=== PATIENT | female | born 1990 | race Caucasian/White ===

== ENCOUNTER 2018-06-20 11:08 | Observation (INO) | payer MEDICAID ==
[2018-06-20] MEDS ORDERED: NORMAL SALINE 1000 ML 1,000 ML IV PRN (11:53)
[2018-06-20] MEDS ORDERED: MORPHINE SULFATE 10 MG/ML INJ ONE (13:15)
[2018-06-20] MEDS: CLINDAMYCIN 600 MG/D5W RTU 600 MG/50 ML RTUPB IV SCH ×2 (13:23→21:49)
[2018-06-20 13:50] LABS: HEMOGLOBIN 13.7 g/dL (12.0-15.5); MEAN CORPUSCULAR HEMOGLOBIN 29.6 pg (27.0-33.4); MEAN CORPUSCULAR HGB CONC 34.2 g/dL (32.0-36.0); MEAN CORPUSCULAR VOLUME 86 fl (80-97); PLATELET COUNT 421 10^3/uL (150-450); RED BLOOD COUNT 4.63 10^6/uL (3.72-5.28); RED CELL DISTRIBUTION WIDTH 12.9 % (11.5-14.0); WHITE BLOOD COUNT 10.3 10^3/uL (4.0-10.5)
[2018-06-20 14:21] LABS: ANION GAP 12 (5-19); BLOOD UREA NITROGEN 11 mg/dL (7-20); CALCIUM 9.2 mg/dL (8.4-10.2); CARBON DIOXIDE 24 mmol/L (22-30); CHLORIDE 105 mmol/L (98-107); GLUCOSE 93 mg/dL (75-110); POTASSIUM 4.1 mmol/L (3.6-5.0)
[2018-06-20] MEDS ORDERED: CLINDAMYCIN PHOSPHATE 450 MG in DEXTROSE 5%-WATER 50 ML IV SCH (15:00)
[2018-06-20] MEDS ORDERED: GLUCAGON,HUMAN RECOMB 1 MG INJ IM PRN (15:01)
[2018-06-20] MEDS ORDERED: DEXTROSE 50%-WATER 25 GM/50 ML DISP.SYRIN IV PRN ×2 (15:01)
[2018-06-20] MEDS ORDERED: DEXTROSE 40% GEL 15 GM TUBE PO PRN ×2 (15:01)
--- NOTE | 2018-06-20 15:01 | PDOC H&P ---
History of Present Illness Admission Date/PCP: 06/20/18 11:08 LEANDER REYES NP Patient complains of: Swelling and pain under her left chin. History of Present Illness: STEVE FARIAS is a 27 year old female in usual state of good health until late last week when she noticed perhaps an insect bite underneath her left chin that she scratched. She subsequently developed swelling and redness underneath her left chin along with pain. No drainage and no fever. She has a history of MRSA of her groin in the remote past. She has a history of diabetes for which she takes insulin. Past Medical History Endocrine Medical History: Reports: Diabetes Mellitus Type 2 Infectious Medical History: Reports: Methicillin-Resistant Staph Aureus Social History Smoking Status: Never Smoker Frequency of Alcohol Use: None Hx Recreational Drug Use: No Hx Prescription Drug Abuse: No Family History Parental Family History Reviewed: No Children Family History Reviewed: No Sibling(s) Family History Reviewed.: No Medication/Allergy Allergies/Adverse Reactions: codeine Allergy (Unknown, Verified 06/20/18 14:45) Physical Exam Vital Signs: Temp Pulse Resp BP Pulse Ox 98.9 F 100 24 H 146/93 H 95 06/20/18 11:49 06/20/18 11:49 06/20/18 11:49 06/20/18 11:49 06/20/18 11:49 Intake & Output 06/19/18 06/20/18 06/21/18 06:59 06:59 06:59 Weight 95.71 kg General appearance: PRESENT: no acute distress, cooperative Eye exam: PRESENT: conjunctiva pink Neck exam: PRESENT: other - Under her left chin, approximately 4 x 4 centimeter region of swelling with tenderness and erythema and a sense of central fluctuance. A scab at the left chin superior to this region of erythema. No drainage. Marked tenderness to palpation in the region of swelling. Respiratory exam: PRESENT: clear to auscultation leonor Cardiovascular exam: PRESENT: RRR GI/Abdominal exam: PRESENT: other - Soft, nondistended, nontender to palpation. Neurological exam: PRESENT: alert, awake Psychiatric exam: PRESENT: appropriate affect Skin exam: PRESENT: warm Results Laboratory Results: 06/20/18 13:25 06/20/18 13:25 06/20/18 06/20/18 06/20/18 13:25 13:25 13:25 WBC 10.3 RBC 4.63 Hgb 13.7 Hct 40.0 MCV 86 MCH 29.6 MCHC 34.2 RDW 12.9 Plt Count 421 Sodium 141.0 Potassium 4.1 Chloride 105 Carbon Dioxide 24 Anion Gap 12 BUN 11 Creatinine 0.50 L Est GFR ( Amer) > 60 Est GFR (Non-Af Amer) > 60 Glucose 93 Calcium 9.2 Serum HCG, Qual NEGATIVE Assessment & Plan - Diagnosis (1) Abscess Is this a current diagnosis for this admission?: Yes Plan: Most likely an abscess under her left chin. Will plan incision and drainage in the OR. I discussed with the patient the risk and benefits of the procedure including risk of scarring, recurrence, mistaken diagnosis, injury to underlying structures. Patient understands and agrees to proceed.
[2018-06-20] MEDS ORDERED: FENTANYL CITRATE INJ/PF 100 MCG/2 ML AMPUL ONE ×2 (15:58)
[2018-06-20] MEDS ORDERED: MIDAZOLAM 2 MG/2 ML INJ ONE (15:58)
[2018-06-20] MEDS ORDERED: PROPOFOL INJ 200 MG/20 ML VIAL IV ONE (15:58)
[2018-06-20] MEDS ORDERED: LIDOCAINE 1% INJ-PF (10 MG/ML) 30 ML SDV ONE (16:20)
[2018-06-20] MEDS ORDERED: BUPIVACAINE HCL 0.25 % INJ/PF (2.5 MG/1 ML) 30 ML VIAL ONE (16:20)
[2018-06-20] MEDS ORDERED: FENTANYL CITRATE INJ/PF 100 MCG/2 ML AMPUL IV PRN ×3 (16:34)
[2018-06-20] MEDS ORDERED: DIPHENHYDRAMINE HCL 50 MG/ML VIAL IV PRN (16:34)
[2018-06-20] MEDS ORDERED: MORPHINE SULFATE 10 MG/ML INJ IV PRN (16:34)
[2018-06-20] MEDS ORDERED: MEPERIDINE HCL/PF INJ 25 MG/1 ML DISP.SYRIN IV PRN (16:34)
[2018-06-20] MEDS ORDERED: PROMETHAZINE HCL INJ 25 MG/1 ML VIAL IV PRN ×2 (16:34)
--- NOTE | 2018-06-20 16:53 | Operative Report ---
Operative Report DATE OF SURGERY: 06/20/18 PREOPERATIVE DIAGNOSIS: submental subcutaneous abscess POSTOPERATIVE DIAGNOSIS: 3 cm submental subcutaneous abscess OPERATION: Incision and drainage of abscess measuring 3 cm in size SURGEON: NADIA SOARES ANESTHESIA: LMAC TISSUE REMOVED OR ALTERED: Pus sent for Gram stain and culture COMPLICATIONS: None ESTIMATED BLOOD LOSS: Minimal INTRAOPERATIVE FINDINGS: Approximately 2 x 3 cm abscess cavity in the left submental region. PROCEDURE: Informed consent was obtained. Patient was brought to the operating room placed in the operating table in supine position. The procedure was done under LMAC. Patient is chin and neck were prepped and draped in usual sterile manner. Local anesthetic was administered. The mass measured about 4 x 3 cm in size and was located in the left submental region. Transverse incision was made overlying the region of fluctuance entering an abscess cavity measuring 3 x 2 cm in size. Fluid was sent for Gram stain and culture. The cavity was irrigated out. Hemostasis was achieved with electrocautery. The wound was then packed. Patient tolerated procedure well with no apparent complications.
[2018-06-20] MEDS: MORPHINE SULFATE 10 MG/ML INJ IV PRN ×2 (18:28→21:50)
[2018-06-21] MEDS: MORPHINE SULFATE 10 MG/ML INJ IV PRN (04:06)
[2018-06-21] MEDS: CLINDAMYCIN 600 MG/D5W RTU 600 MG/50 ML RTUPB IV SCH (05:15)
[2018-06-21] MEDS: INSULIN REG, HUMAN 100 UNIT/ML 3 ML VIAL (PYX) SUBCUT PRN ×3 (08:26→22:19)
[2018-06-21] MEDS: TRAMADOL HCL 50 MG TABLET PO PRN ×4 (08:27→22:13)
[2018-06-21] MEDS: IBUPROFEN 800 MG TABLET PO SCH ×3 (08:28→22:12)
--- NOTE | 2018-06-21 08:54 | PDOC PROGRESS REPORT ---
Subjective Progress Note for:: 06/21/18 Reason For Visit: ABSCESS ON CHIN Physical Exam Vital Signs: Temp Pulse Resp BP Pulse Ox 98.1 F 94 16 116/73 97 06/21/18 08:08 06/21/18 08:08 06/21/18 08:08 06/21/18 08:08 06/21/18 08:08 Intake & Output 06/20/18 06/21/18 06/22/18 06:59 06:59 06:59 Intake Total 4410 1000 Output Total 25 Balance 4385 1000 Weight 97.4 kg Results Laboratory Results: 06/20/18 13:25 06/20/18 13:25 06/20/18 06/20/18 06/20/18 13:25 13:25 13:25 WBC 10.3 RBC 4.63 Hgb 13.7 Hct 40.0 MCV 86 MCH 29.6 MCHC 34.2 RDW 12.9 Plt Count 421 Sodium 141.0 Potassium 4.1 Chloride 105 Carbon Dioxide 24 Anion Gap 12 BUN 11 Creatinine 0.50 L Est GFR ( Amer) > 60 Est GFR (Non-Af Amer) > 60 Glucose 93 Calcium 9.2 Serum HCG, Qual NEGATIVE Assessment & Plan - Diagnosis (1) Abscess Is this a current diagnosis for this admission?: Yes - Plan Summary Plan Summary: This is a 27-year-old female status post incision and drainage of a facial abscess. The abscess cavity appears clean, however there is still significant induration. There is no purulent drainage at this time. Packing was removed and replaced at bedside today. Continue with antibiotics. Continue to monitor closely for clinical response. Dressing changes twice daily. Transition to oral pain medications. Anticipate discharge home tomorrow.
[2018-06-21] MEDS: DIPHENHYDRAMINE HCL 25 MG CAPSULE PO PRN ×2 (09:45→22:12)
[2018-06-21] MEDS: CLINDAMYCIN HCL 150 MG CAPSULE PO SCH ×2 (12:19→18:22)
[2018-06-22] MEDS: CLINDAMYCIN HCL 150 MG CAPSULE PO SCH ×3 (00:10→12:23)
[2018-06-22] MEDS: TRAMADOL HCL 50 MG TABLET PO PRN (06:27)
[2018-06-22] MEDS: IBUPROFEN 800 MG TABLET PO SCH (06:28)
--- NOTE | 2018-06-22 09:03 | PDOC PROGRESS REPORT ---
Subjective Progress Note for:: 06/22/18 Subjective:: Feels much better. Reason For Visit: ABSCESS ON CHIN Physical Exam Vital Signs: Temp Pulse Resp BP Pulse Ox 98.0 F 67 12 105/59 L 99 06/22/18 07:42 06/22/18 07:42 06/22/18 07:42 06/22/18 07:42 06/22/18 07:42 Intake & Output 06/21/18 06/22/18 06/23/18 06:59 06:59 06:59 Intake Total 4410 2891 Output Total 25 Balance 4385 2891 Weight 97.4 kg General appearance: PRESENT: no acute distress, cooperative Respiratory exam: PRESENT: clear to auscultation leonor Cardiovascular exam: PRESENT: RRR GI/Abdominal exam: PRESENT: other - Soft, nondistended, nontender to palpation. Skin exam: PRESENT: other - Submental wound is clean with no purulent drainage. The surrounding region of erythema and induration has markedly improved. Results Laboratory Results: 06/20/18 13:25 06/20/18 13:25 06/20/18 16:44 Face - Abscess Gram Stain - Final Assessment & Plan - Diagnosis (1) Abscess Is this a current diagnosis for this admission?: Yes Plan: Status post incision and drainage. Responding well with surgical therapy and antibiotic therapy. Cultures still pending at this time however with the patient responding well with the current therapy will discharge patient home on clindamycin. Follow-up next week at [facility].
--- NOTE | 2018-06-22 09:41 | DISCHARGE SUMMARY E ---
Discharge Summary NAME: STEVE FARIAS : 1990 AGE: 27Y ADMITTED: 06/20/2018 DISCHARGED: 06/22/2018 DISCHARGE DIAGNOSIS: Submental abscess. SECONDARY DIAGNOSIS: Diabetes. PROCEDURE PERFORMED DURING HOSPITALIZATION: Incision and drainage of submental abscess performed by Dr. Ariella Soares on 06/20/2018. HOSPITAL COURSE: The patient underwent the above mentioned surgery. She was also treated with IV clindamycin. She responded well with therapy. The wound looked good and the induration and erythema had markedly improved by the time of discharge. Her culture results were still pending at the time of discharge, but the gram stain demonstrated gram-positive cocci in clusters. She does have a history of MRSA in the past. The patient is now being discharged to home with clindamycin 300 mg p.o. q.i.d. for 5 days. She will follow up at [facility] next week. She is to call for any problems such as worsening of her redness or development of diarrhea or abdominal pain. The patient may follow a diabetic diet. She is encouraged to stay active at home. DICTATING PHYSICIAN: ARIELLA SOARES M.D. [id number] PHY#: [id number] ID: [id number] JOB#: [id number] ACCT: [id number] cc:ARIELLA SOARES M.D. >
[2018-06-22] MEDS ORDERED: ONDANSETRON 4 MG TAB.RAPDIS ONE (10:15)
[2018-06-22] MEDS ORDERED: ONDANSETRON 4 MG TAB.RAPDIS PO ONE (10:30)
[2018-06-22 12:23] VITALS: BP 115/73
== END 2018-06-22 13:20 | disposition home or self-care (01) ==
LOC: 2N 11:08
PROVIDERS: ADMIT Surgery; ATTEND Surgery
PROC: 0W950ZX Drainage of Lower Jaw, Open Approach, Diagnostic (ICD-10-PCS; principal; 2018-06-20 15:30)
DX: L02.01 Cutaneous abscess of face (principal); E11.9 Type 2 diabetes mellitus without complications; Z86.14 Personal history of Methicillin resistant Staphylococcus aureus infection; Z79.4 Long term (current) use of insulin; F32.9 Major depressive disorder, single episode, unspecified
CPT/HCPCS: 36415; 87070; 82962 ×3; 84703; 85027; 87075; 87077; 80048; 87186; 41016; G0378 ×3; G0379; J2250; S0077 ×2; J3490 ×6; S0119; J3010; J2270 ×2; J1815; S0020; J7030; J2704; 300; 87205

== ENCOUNTER 2019-01-16 11:51 | Inpatient (IN) | payer MEDICAID ==
[2019-01-16] MEDS ORDERED: ONDANSETRON HCL INJ/PF 4 MG/2 ML SDV IV ONE ×2 (12:16→16:48)
[2019-01-16] MEDS: NORMAL SALINE 1000 ML 1,000 ML IV PRN ×2 (12:28→13:34)
[2019-01-16 12:44] LABS: ABSOLUTE BASOPHILS # (AUTO) 0.1 10^3/uL (0.0-0.2); ABSOLUTE LYMPHOCYTES (AUTO) 1.6 10^3/uL (0.5-4.7); ABSOLUTE MONOCYTES (AUTO) 0.5 10^3/uL (0.1-1.4); ABSOLUTE NEUT (AUTO) 9.8 10^3/uL (1.7-8.2); BASOPHILS % (AUTO) 0.7 % (0-2); HEMOGLOBIN 16.3 g/dL (12.0-15.5); LYMPHOCYTES % (AUTO) 13.5 % (13-45); MEAN CORPUSCULAR HEMOGLOBIN 29.9 pg (27.0-33.4); MEAN CORPUSCULAR HGB CONC 33.2 g/dL (32.0-36.0); MEAN CORPUSCULAR VOLUME 90 fl (80-97); MONOCYTES % (AUTO) 3.9 % (3-13); PLATELET COUNT 625 10^3/uL (150-450); RED BLOOD COUNT 5.44 10^6/uL (3.72-5.28); RED CELL DISTRIBUTION WIDTH 14.1 % (11.5-14.0); SEGMENTED NEUTROPHILS % (AUTO) 81.9 % (42-78); TOTAL CELLS COUNTED % (AUTO) 100 %; WHITE BLOOD COUNT 11.9 10^3/uL (4.0-10.5)
[2019-01-16 12:59] LABS: VENOUS BLOOD BASE EXCESS -14.8 mmol/L; VENOUS BLOOD HCO3 11.6 mmol/L (20-32); VENOUS BLOOD PH 7.21 (7.30-7.42)
[2019-01-16] MEDS ORDERED: FAMOTIDINE INJ/PF 20 MG/2 ML SDV IV ONE (13:14)
[2019-01-16 14:07] LABS: APPEARANCE,URINE CLEAR; BILIRUBIN,URINE NEGATIVE (NEGATIVE); COLOR,URINE YELLOW; GLUCOSE, URINE >=500 mg/dL (NEGATIVE); KETONES,URINE 80 mg/dL (NEGATIVE); LEUKOCYTE ESTERASE,URINE NEGATIVE (NEGATIVE); NITRITE,URINE NEGATIVE (NEGATIVE); PROTEIN,URINE 30 mg/dL (NEGATIVE); URINE SPECIFIC GRAVITY 1.022; UROBILINOGEN,URINE NEGATIVE mg/dL (<2.0)
[2019-01-16 14:53] LABS: ALANINE AMINOTRANSFERASE 30 U/L (9-52); ALBUMIN 4.6 g/dL (3.5-5.0); ALKALINE PHOSPHATASE 118 U/L (38-126); ASPARTATE AMINO TRANSFERASE 13 U/L (14-36); BILIRUBIN,DIRECT 0.2 mg/dL (0.0-0.4); BILIRUBIN,TOTAL 0.7 mg/dL (0.2-1.3); BLOOD UREA NITROGEN 12 mg/dL (7-20); CALCIUM 9.1 mg/dL (8.4-10.2); CARBON DIOXIDE 14 mmol/L (22-30); CHLORIDE 108 mmol/L (98-107); GLUCOSE 275 mg/dL (75-110); LIPASE 27.4 U/L (23-300); POTASSIUM 4.3 mmol/L (3.6-5.0); TOTAL PROTEIN 7.4 g/dL (6.3-8.2)
[2019-01-16 14:55] LABS: ALCOHOL < 10 mg/dL (NONE DETECTED)
[2019-01-16 14:58] LABS: ANION GAP 19 (5-19); SODIUM 141.4 mmol/L (137-145)
[2019-01-16] MEDS ORDERED: POTASSI CL 20 MEQ/D5-1/2NS 1L 1,000 ML IV ONE (15:19)
[2019-01-16] MEDS ORDERED: INSULIN REG, HUMAN 100 UNIT/ML 3 ML VIAL (PYX) IV ONE (15:21)
--- NOTE | 2019-01-16 16:23 | ER Document Report ---
Entered by SHIMA KEBEDE SCRIBE 01/16/19 1230 Acting as scribe for:LIDIA ESCOBAR DO ED Medical Screen (RME) - General Chief Complaint: Nausea/Vomiting Stated Complaint: FATIGUE, BLOOD SUGAR ISSUE Time Seen by Provider: 01/16/19 12:07 Primary Care Provider: LEANDER REYES NP [Primary Care Provider] - Follow up as needed Mode of Arrival: Ambulatory Information source: Patient Notes: Patient is a 28-year-old female presenting to the emergency department complaining of nausea, vomiting onset 2 days ago. Patient states she was celebrating a friends birthday over the weekend and consumed [place] when she normally does not do. She states she was also around a child who was also sick over the weekend. She states she is unsure if the alcohol has caused dka due to her symptoms feeling similar previous dka. She states she has been unable to maintain much food or liquids further stating she has only been able to eat dry toast and a small amount of water. She also reports an elevated blood sugar of 580 this morning. She states prior to EMS arrival she took 16 units of Humalog. She states she was given fluids and Zofran which minimally relieved her symptoms. I have greeted and performed a rapid initial assessment of the patient. A comprehensive ED assessment and evaluation of the patient, analysis of test results, and completion of the medical decision making process will be conducted by additional ED providers. GENERAL: Alert, interacts well. No acute distress. HEAD: Normocephalic, atraumatic. EYES: Pupils equal, round, and reactive to light. Extraocular movements intact. ENT: Oral mucosa dry, tongue midline. NECK: Full range of motion. Supple. Trachea midline. LUNGS: Clear to auscultation bilaterally, no wheezes, rales, or rhonchi. No respiratory distress. HEART: Tachycardic. No murmurs, gallops, or rubs. ABDOMEN: Soft, non-tender. Non-distended. Bowel sounds present in all 4 quadrants. No guarding, rigidity, or rebound. EXTREMITIES: Moves all 4 extremities spontaneously. NEUROLOGICAL: Alert and oriented x3. Normal speech. PSYCH: Normal affect, normal mood. SKIN: Warm, dry, normal turgor. No rashes or lesions noted. TRAVEL OUTSIDE OF THE [place] IN LAST 30 DAYS: No - Related Data Allergies/Adverse Reactions: codeine Allergy (Unknown, Verified 01/16/19 11:53) Past Medical History - Social History Frequency of alcohol use: Occasional Drug Abuse: None Endocrine Medical History: Reports: Hx Diabetes Mellitus Type 1, Hx Diabetes Mellitus Type 2 Renal/ Medical History: Denies: Hx Peritoneal Dialysis Infectious Medical History: Reports: Hx MRSA Past Surgical History: Reports: Hx Tonsillectomy, Hx Tubal Ligation - Immunizations History of Influenza Vaccine for 08/2017 - 01/2018 Season: No Physical Exam - Vital signs Vitals: Temp Pulse Resp BP Pulse Ox 98.3 F 145 H 22 H 121/83 98 01/16/19 12:02 01/16/19 12:02 01/16/19 12:02 01/16/19 12:02 01/16/19 12:02 Course - Vital Signs Vital signs: Temp Pulse Resp BP Pulse Ox 98.3 F 145 H 27 H 133/97 H 98 01/16/19 12:02 01/16/19 12:02 01/16/19 12:46 01/16/19 12:45 01/16/19 12:46 - Laboratory Result Diagrams: 01/16/19 12:22 01/16/19 14:15 Laboratory results interpreted by me: 01/16/19 01/16/19 01/16/19 12:22 12:22 13:21 WBC 11.9 H RBC 5.44 H Hgb 16.3 H Hct 49.0 H RDW 14.1 H Plt Count 625 H Seg Neutrophils % 81.9 H Absolute Neutrophils 9.8 H VBG pH 7.21 L VBG pCO2 30.0 L VBG HCO3 11.6 L Chloride Carbon Dioxide Glucose POC Glucose 295 H AST Urine Protein Urine Glucose (UA) Urine Ketones Urine Blood 01/16/19 01/16/19 13:55 14:15 WBC RBC Hgb Hct RDW Plt Count Seg Neutrophils % Absolute Neutrophils VBG pH VBG pCO2 VBG HCO3 Chloride 108 H Carbon Dioxide 14 L Glucose 275 H POC Glucose AST 13 L Urine Protein 30 H Urine Glucose (UA) >=500 H Urine Ketones 80 H Urine Blood SMALL H Doctor's Discharge - Discharge Referrals: LEANDER REYES NP [Primary Care Provider] - Follow up as needed I personally performed the services described in the documentation, reviewed and edited the documentation which was dictated to the scribe in my presence, and it accurately records my words and actions.
[2019-01-16] MEDS ORDERED: ACETAMINOPHEN 325 MG TABLET PO PRN (17:01)
[2019-01-16] MEDS ORDERED: DEXTROSE 40% GEL 15 GM TUBE PO PRN ×2 (17:09)
[2019-01-16] MEDS ORDERED: DEXTROSE 50%-WATER 25 GM/50 ML DISP.SYRIN IV PRN ×2 (17:09)
[2019-01-16] MEDS ORDERED: GLUCAGON,HUMAN RECOMB 1 MG INJ IM PRN (17:09)
--- NOTE | 2019-01-16 17:21 | ER Document Report ---
ED General - General Chief Complaint: Nausea/Vomiting Stated Complaint: FATIGUE, BLOOD SUGAR ISSUE Time Seen by Provider: 01/16/19 12:07 Primary Care Provider: LEANDER REYES NP [Primary Care Provider] - Follow up as needed Mode of Arrival: Ambulatory TRAVEL OUTSIDE OF THE [place] IN LAST 30 DAYS: No - HPI Notes: Patient presents to the emergency department for evaluation of nausea, vomiting, elevated blood sugar. She is a type I diabetic, diagnosed approximately 12 years ago. She states she went out with friends to celebrate a birthday. She did admit to drinking more alcohol than she believes she should have. She states that since then she has had vomiting. Is been getting progressively worse. The vomit has been nonbloody, nonbilious. She is not urinating more than normal. She continues to take her insulin as prescribed. This all feels similar to when she was in DKA in the past. She states she did have some heartburn associated. - Related Data Allergies/Adverse Reactions: codeine Allergy (Unknown, Verified 01/16/19 11:53) Past Medical History - General Information source: Patient - Social History Smoking Status: Never Smoker Frequency of alcohol use: Occasional Drug Abuse: None Family History: Reviewed & Not Pertinent Patient has suicidal ideation: No Patient has homicidal ideation: No Endocrine Medical History: Reports: Hx Diabetes Mellitus Type 1 Renal/ Medical History: Denies: Hx Peritoneal Dialysis Infectious Medical History: Reports: Hx MRSA Past Surgical History: Reports: Hx Tonsillectomy, Hx Tubal Ligation Review of Systems - Review of Systems Constitutional: Malaise, Weakness EENT: No symptoms reported Cardiovascular: No symptoms reported Respiratory: No symptoms reported Gastrointestinal: See HPI Musculoskeletal: No symptoms reported Skin: No symptoms reported Neurological/Psychological: No symptoms reported Physical Exam - Vital signs Vitals: Temp Pulse Resp BP Pulse Ox 98.3 F 145 H 22 H 121/83 98 01/16/19 12:02 01/16/19 12:02 01/16/19 12:02 01/16/19 12:02 01/16/19 12:02 Interpretation: Tachycardic - Notes Notes: Initially markedly tachycardic. Vital signs reviewed, please refer to chart. Patient is normocephalic, atraumatic. Pupils equal round, reactive to light. Neck is supple without meningismus. Heart is regular. Lungs are clear to auscultation bilaterally. Abdomen is soft, nontender, normoactive bowel sounds throughout. Extremities without cyanosis, clubbing, edema. Peripheral pulses are equal. Skin is warm and dry. Patient is awake, alert, neurological exam is nonfocal. Course - Re-evaluation Re-evalutation: 01/16/19 17:34 Patient presents to the emergency department for evaluation. Her symptoms were most consistent with a presentation of diabetic ketoacidosis. Initial orders as listed. Patient given IV fluids. She is placed on a cardiac surgeon and her tachycardia improved markedly. She was given Pepcid and Zofran for her nausea and heartburn with significant improvement. Laboratory investigations are consistent with DKA. She was started on IV insulin 8 units an hour. The patient's blood sugar had dropped. She did give herself a bolus of insulin prior to arrival. She was placed on D5 half-normal with potassium in her fluids. Blood sugars were moved to every 30 minutes. I spoke with MERCY Briones, he will admit the patient for further care. - Vital Signs Vital signs: Temp Pulse Resp BP Pulse Ox 98.3 F 145 H 24 H 122/80 99 01/16/19 12:02 01/16/19 12:02 01/16/19 16:01 01/16/19 16:01 01/16/19 16:01 01/16/19 17:33 Vital signs on recheck reveals a heart rate of 103 - Laboratory Result Diagrams: 01/16/19 12:22 01/16/19 14:15 Laboratory results interpreted by me: 01/16/19 01/16/19 01/16/19 12:22 12:22 13:21 WBC 11.9 H RBC 5.44 H Hgb 16.3 H Hct 49.0 H RDW 14.1 H Plt Count 625 H Seg Neutrophils % 81.9 H Absolute Neutrophils 9.8 H VBG pH 7.21 L VBG pCO2 30.0 L VBG HCO3 11.6 L Chloride Carbon Dioxide Glucose POC Glucose 295 H AST Urine Protein Urine Glucose (UA) Urine Ketones Urine Blood 01/16/19 01/16/19 13:55 14:15 WBC RBC Hgb Hct RDW Plt Count Seg Neutrophils % Absolute Neutrophils VBG pH VBG pCO2 VBG HCO3 Chloride 108 H Carbon Dioxide 14 L Glucose 275 H POC Glucose AST 13 L Urine Protein 30 H Urine Glucose (UA) >=500 H Urine Ketones 80 H Urine Blood SMALL H Critical Care Note - Critical Care Note Total time excluding time spent on procedures (mins): 30 Discharge - Discharge Clinical Impression: Diabetic ketoacidosis Condition: Stable Disposition: ADMITTED INPATIENT Admitting Provider: Nikki MADRID Briones Unit Admitted: IMCU Referrals: LEANDER REYES NP [Primary Care Provider] - Follow up as needed
--- NOTE | 2019-01-16 17:22 | PDOC H&P ---
History of Present Illness Admission Date/PCP: LEANDER REYES NP Patient complains of: Nause and vomiting with adominal pain History of Present Illness: STEVE FARIAS is a 28 year old female presents to the ER with a 2 day history of abdominal pain and vomiting. 01/13/19 she had 3 shots while out with friends. on 01/14/19 she developed abdominal pain with some vomiting. on 01/15/19 it progressed and on 01/16/19 he BS was almost 600 and she was unable to eat or drink so she called EMS to bring her to the ER. She had 2 episodes of vomiting in the ER but doies feel better after receiving IVF. She felt she was in DKA and states she has only been in DKA 1 other time. Past Medical History Cardiac Medical History: Reports: None Pulmonary Medical History: Reports: None EENT Medical History: Reports: None Neurological Medical History: Reports: None Endocrine Medical History: Reports: Diabetes Mellitus Type 1 Renal/ Medical History: Denies: Chronic Kidney Disease GI Medical History: Reports: Gastroesophageal Reflux Disease Psychiatric Medical History: Reports: Depression Infectious Medical History: Reports: Methicillin-Resistant Staph Aureus Past Surgical History Past Surgical History: Reports: Tonsillectomy, Tubal Ligation Social History Smoking Status: Never Smoker Frequency of Alcohol Use: None Hx Recreational Drug Use: No Hx Prescription Drug Abuse: No Family History Family History: DM, Hypertension Parental Family History Reviewed: Yes Children Family History Reviewed: Yes Sibling(s) Family History Reviewed.: Yes Medication/Allergy Home Medications: Bupropion HCl [Wellbutrin Sr 100 mg Tablet] 1 tab PO Q12 06/21/18 Buspirone HCl [Buspar 10 mg Tablet] 10 mg PO BID 06/21/18 Duloxetine HCl [Cymbalta] 60 mg PO BID 06/21/18 Hydroxyzine Pamoate [Vistaril 25 mg Capsule] 25 mg PO BIDP PRN 06/21/18 Insulin Glargine,Hum.rec.anlog [Juancarlos Soljamey] 30 unit SQ Q12 06/21/18 Insulin Lispro [Humalog Insulin (Lispro) 100 unit/mL] 0 unit SUBCUT .SLD SCALE 06/21/18 L.acidoph,Paracasei, B.lactis [Probiotic] 1 each PO DAILY 06/21/18 Clindamycin HCl [Cleocin 150 mg Capsule] 300 mg PO Q6 #20 capsule 06/22/18 Allergies/Adverse Reactions: codeine Allergy (Unknown, Verified 01/16/19 11:53) Review of Systems Constitutional: PRESENT: chills, fatigue. ABSENT: fever(s), headache(s) Nose, Mouth, and Throat: ABSENT: sore throat Cardiovascular: ABSENT: edema, palpitations Gastrointestinal: PRESENT: abdominal pain, nausea, vomiting. ABSENT: diarrhea Genitourinary: ABSENT: difficulty urinating, dysuria Integumentary: ABSENT: rash Neurological: ABSENT: dizziness, focal weakness, frequent falls Psychiatric: PRESENT: anxiety, depression Endocrine: PRESENT: polydipsia. ABSENT: polyuria Hematologic/Lymphatic: ABSENT: lymphadenopathy Physical Exam Vital Signs: Temp Pulse Resp BP Pulse Ox 98.3 F 145 H 24 H 122/80 99 01/16/19 12:02 01/16/19 12:02 01/16/19 16:01 01/16/19 16:01 01/16/19 16:01 Intake & Output 01/15/19 01/16/19 01/17/19 06:59 06:59 06:59 Intake Total 1000 Balance 1000 Weight 92.986 kg General appearance: PRESENT: no acute distress, cooperative, well-developed, well-nourished Eye exam: PRESENT: EOMI, PERRLA. ABSENT: scleral icterus Ear exam: PRESENT: TM's normal bilaterally Mouth exam: PRESENT: moist, neck supple Neck exam: PRESENT: full ROM, JVD. ABSENT: lymphadenopathy, tenderness, thyromegaly, tracheal deviation Respiratory exam: PRESENT: clear to auscultation leonor, unlabored. ABSENT: accessory muscle use Cardiovascular exam: PRESENT: RRR GI/Abdominal exam: PRESENT: soft, tenderness - epigastric. ABSENT: distended Extremities exam: ABSENT: pedal edema, tenderness Musculoskeletal exam: ABSENT: tenderness Neurological exam: PRESENT: alert, oriented to person, oriented to place, oriented to time, oriented to situation Skin exam: PRESENT: dry, normal color, warm. ABSENT: pallor Results Laboratory Results: 01/16/19 12:22 01/16/19 14:15 01/16/19 01/16/19 01/16/19 12:22 12:22 12:22 WBC 11.9 H RBC 5.44 H Hgb 16.3 H Hct 49.0 H MCV 90 MCH 29.9 MCHC 33.2 RDW 14.1 H Plt Count 625 H Seg Neutrophils % 81.9 H Lymphocytes % 13.5 Monocytes % 3.9 Eosinophils % 0.0 Basophils % 0.7 Absolute Neutrophils 9.8 H Absolute Lymphocytes 1.6 Absolute Monocytes 0.5 Absolute Eosinophils 0.0 Absolute Basophils 0.1 VBG pH 7.21 L VBG pCO2 30.0 L VBG HCO3 11.6 L VBG Base Excess -14.8 Sodium Cancelled Potassium Cancelled Chloride Cancelled Carbon Dioxide Cancelled Anion Gap Cancelled BUN Cancelled Creatinine Cancelled Est GFR ( Amer) Cancelled Est GFR (Non-Af Amer) Cancelled Glucose Cancelled Calcium Cancelled Total Bilirubin Cancelled AST Cancelled ALT Cancelled Alkaline Phosphatase Cancelled Total Protein Cancelled Albumin Cancelled Lipase Cancelled Serum HCG, Qual Urine Color Urine Appearance Urine pH Ur Specific [place] Urine Protein Urine Glucose (UA) Urine Ketones Urine Blood Urine Nitrite Ur Leukocyte Esterase Urine WBC (Auto) Urine RBC (Auto) 01/16/19 01/16/19 01/16/19 13:55 14:15 14:15 WBC RBC Hgb Hct MCV MCH MCHC RDW Plt Count Seg Neutrophils % Lymphocytes % Monocytes % Eosinophils % Basophils % Absolute Neutrophils Absolute Lymphocytes Absolute Monocytes Absolute Eosinophils Absolute Basophils VBG pH VBG pCO2 VBG HCO3 VBG Base Excess Sodium 141.4 Potassium 4.3 Chloride 108 H Carbon Dioxide 14 L Anion Gap 19 BUN 12 Creatinine 0.62 Est GFR ( Amer) > 60 Est GFR (Non-Af Amer) > 60 Glucose 275 H Calcium 9.1 Total Bilirubin 0.7 AST 13 L ALT 30 Alkaline Phosphatase 118 Total Protein 7.4 Albumin 4.6 Lipase 27.4 Serum HCG, Qual NEGATIVE Urine Color YELLOW Urine Appearance CLEAR Urine pH 5.0 Ur Specific [place] 1.022 Urine Protein 30 H Urine Glucose (UA) >=500 H Urine Ketones 80 H Urine Blood SMALL H Urine Nitrite NEGATIVE Ur Leukocyte Esterase NEGATIVE Urine WBC (Auto) 1 Urine RBC (Auto) 0 Assessment & Plan - Diagnosis (1) DKA (diabetic ketoacidoses) Qualifiers: Diabetes mellitus type: type 1 Diabetes mellitus complication detail: without coma Qualified Code(s): E10.10 - Type 1 diabetes mellitus with ketoacidosis without coma Is this a current diagnosis for this admission?: Yes Plan: will admit to IMCU. continue hydration and start insulin drip. monitor electrolytes carefully. advance diet as tolerated. transition back to home dosin g as soon as possible.. Appears improved after receiving 2L in ER. (2) Diabetes type I Qualifiers: Diabetes mellitus complication status: without complication Qualified Code(s): E10.9 - Type 1 diabetes mellitus without complications Is this a current diagnosis for this admission?: Yes Plan: will transition to home regiment as soon as medically stable (3) GERD (gastroesophageal reflux disease) Qualifiers: Esophagitis presence: without esophagitis Qualified Code(s): K21.9 - Gastro-esophageal reflux disease without esophagitis Is this a current diagnosis for this admission?: Yes Plan: continue PPI (4) Anxiety and depression Is this a current diagnosis for this admission?: Yes Plan: holding home medications due to vomiting. will restart wellbutrin and cymbalta once able to tolerate oral medications better - Time Time Spent: 50 to 70 Minutes Medications reviewed and adjusted accordingly: Yes Anticipated discharge: Home
[2019-01-16] MEDS: LANSOPRAZOLE 30 MG TAB.RAP.DR PO SCH (19:23)
[2019-01-16] MEDS: POTASSI CL 20 MEQ/D5NS 1L 20 MEQ/1,000 ML RTUINJ IV PRN (19:50)
[2019-01-16] MEDS: ENOXAPARIN SODIUM INJ 40 MG/0.4 ML DISP.SYRIN SUBCUT SCH (20:41)
[2019-01-16] MEDS: NORMAL SALINE 100 ML with INSULIN REGULAR, HUMAN 100 UNIT IV PRN ×2 (20:48)
[2019-01-16] MEDS ORDERED: DEXTROSE 5%-WATER 1000 ML 1,000 ML with SODIUM BICARBONATE 150 MEQ IV ONE ×2 (22:00)
[2019-01-16] MEDS: ONDANSETRON HCL INJ/PF 4 MG/2 ML SDV IV PRN (22:01)
[2019-01-17] MEDS ORDERED: DEXTROSE 5%-WATER 1000 ML 1,000 ML with SODIUM BICARBONATE 150 MEQ IV PRN ×2
[2019-01-17] MEDS ORDERED: NALBUPHINE HCL INJ 10 MG/1 ML AMPULE IV PRN (00:05)
[2019-01-17] MEDS ORDERED: CHLORPROMAZINE HCL INJ 25 MG/1 ML AMPULE ONE (03:47)
[2019-01-17] MEDS: CHLORPROMAZINE HCL INJ 25 MG/1 ML AMPULE IV PRN (05:18)
[2019-01-17 05:52] LABS: ABSOLUTE BASOPHILS # (AUTO) 0.1 10^3/uL (0.0-0.2); ABSOLUTE EOSINOPHILS # (AUTO) 0.2 10^3/uL (0.0-0.6); ABSOLUTE LYMPHOCYTES (AUTO) 2.9 10^3/uL (0.5-4.7); ABSOLUTE MONOCYTES (AUTO) 0.7 10^3/uL (0.1-1.4); ABSOLUTE NEUT (AUTO) 5.9 10^3/uL (1.7-8.2); BASOPHILS % (AUTO) 0.6 % (0-2); EOSINOPHILS % (AUTO) 1.7 % (0-6); HEMATOCRIT 35.4 % (36.0-47.0); LYMPHOCYTES % (AUTO) 29.9 % (13-45); MEAN CORPUSCULAR HEMOGLOBIN 29.8 pg (27.0-33.4); MEAN CORPUSCULAR HGB CONC 34.2 g/dL (32.0-36.0); MEAN CORPUSCULAR VOLUME 87 fl (80-97); MONOCYTES % (AUTO) 7.5 % (3-13); PLATELET COUNT 390 10^3/uL (150-450); RED BLOOD COUNT 4.08 10^6/uL (3.72-5.28); RED CELL DISTRIBUTION WIDTH 13.6 % (11.5-14.0); SEGMENTED NEUTROPHILS % (AUTO) 60.3 % (42-78); TOTAL CELLS COUNTED % (AUTO) 100 %; WHITE BLOOD COUNT 9.8 10^3/uL (4.0-10.5)
[2019-01-17 06:01] LABS: HEMOGLOBIN 12.1 g/dL (12.0-15.5)
[2019-01-17] MEDS: LANSOPRAZOLE 30 MG TAB.RAP.DR PO SCH (06:02)
[2019-01-17 06:15] LABS: ALANINE AMINOTRANSFERASE 15 U/L (9-52); ALBUMIN 3.5 g/dL (3.5-5.0); ALKALINE PHOSPHATASE 88 U/L (38-126); ANION GAP 10 (5-19); ASPARTATE AMINO TRANSFERASE 11 U/L (14-36); BILIRUBIN,DIRECT 0.3 mg/dL (0.0-0.4); BILIRUBIN,TOTAL 0.9 mg/dL (0.2-1.3); BLOOD UREA NITROGEN 7 mg/dL (7-20); CALCIUM 8.6 mg/dL (8.4-10.2); CARBON DIOXIDE 23 mmol/L (22-30); CHLORIDE 106 mmol/L (98-107); GLUCOSE 155 mg/dL (75-110); POTASSIUM 3.5 mmol/L (3.6-5.0); SODIUM 139.4 mmol/L (137-145); TOTAL PROTEIN 5.8 g/dL (6.3-8.2)
[2019-01-17] MEDS: POTASSI CL 20 MEQ/D5NS 1L 20 MEQ/1,000 ML RTUINJ IV PRN (09:11)
[2019-01-17] MEDS: NORMAL SALINE 100 ML with INSULIN REGULAR, HUMAN 100 UNIT IV PRN ×2 (09:12)
[2019-01-17] MEDS: ENOXAPARIN SODIUM INJ 40 MG/0.4 ML DISP.SYRIN SUBCUT SCH (09:25)
[2019-01-17] MEDS ORDERED: HYDROXYZINE PAMOATE 25 MG CAPSULE PO PRN (11:43)
[2019-01-17] MEDS: ONDANSETRON HCL INJ/PF 4 MG/2 ML SDV IV PRN (14:00)
[2019-01-17] MEDS: INSULIN LISPRO 100 UNIT/ML 3 ML VIAL SUBCUT SCH (17:30)
[2019-01-17] MEDS: BUPROPION HCL 100 MG TABLET PO SCH (17:30)
[2019-01-17] MEDS: INSULIN GLARGINE,HUM.REC.ANLOG 300 UNIT/3 ML INSULN.PEN SUBCUT SCH (21:40)
--- NOTE | 2019-01-17 21:42 | PDOC PROGRESS REPORT ---
Subjective Progress Note for:: 01/17/19 Subjective:: Feeling slightly better than last night. Currently having juice from a low sugar of 64. Waiting for lunch. Reason For Visit: DIABETIC KETOACIDOSIS Physical Exam Vital Signs: Temp Pulse Resp BP Pulse Ox 97.3 F 81 18 104/56 L 100 01/17/19 07:24 01/17/19 07:24 01/17/19 07:24 01/17/19 07:24 01/17/19 07:24 Intake & Output 01/16/19 01/17/19 01/18/19 06:59 06:59 06:59 Intake Total 2204 51 Output Total 1 Balance 2203 51 Weight 93.3 kg General appearance: PRESENT: no acute distress, obese, well-developed Head exam: PRESENT: normocephalic Eye exam: PRESENT: conjunctiva pink, other - Wears glasses. ABSENT: scleral icterus Ear exam: PRESENT: normal external ear exam Mouth exam: PRESENT: moist Respiratory exam: PRESENT: clear to auscultation leonor, symmetrical, unlabored. ABSENT: accessory muscle use, rales, rhonchi, wheezes Cardiovascular exam: PRESENT: RRR, +S1, +S2 GI/Abdominal exam: PRESENT: normal bowel sounds, soft. ABSENT: distended, tenderness Rectal exam: PRESENT: deferred Gentrourinary exam: ABSENT: indwelling catheter Extremities exam: ABSENT: pedal edema Musculoskeletal exam: PRESENT: ambulatory Neurological exam: PRESENT: alert, awake, oriented to person, oriented to place, oriented to time, oriented to situation, CN II-XII grossly intact Psychiatric exam: PRESENT: appropriate affect, normal mood. ABSENT: agitated, anxious Focused psych exam: ABSENT: delusional, restlessness Results Laboratory Results: 01/17/19 04:45 01/17/19 04:45 01/16/19 01/16/19 01/16/19 12:22 12:22 12:22 WBC 11.9 H RBC 5.44 H Hgb 16.3 H Hct 49.0 H MCV 90 MCH 29.9 MCHC 33.2 RDW 14.1 H Plt Count 625 H Seg Neutrophils % 81.9 H Lymphocytes % 13.5 Monocytes % 3.9 Eosinophils % 0.0 Basophils % 0.7 Absolute Neutrophils 9.8 H Absolute Lymphocytes 1.6 Absolute Monocytes 0.5 Absolute Eosinophils 0.0 Absolute Basophils 0.1 VBG pH 7.21 L VBG pCO2 30.0 L VBG HCO3 11.6 L VBG Base Excess -14.8 Sodium Cancelled Potassium Cancelled Chloride Cancelled Carbon Dioxide Cancelled Anion Gap Cancelled BUN Cancelled Creatinine Cancelled Est GFR ( Amer) Cancelled Est GFR (Non-Af Amer) Cancelled Glucose Cancelled Calcium Cancelled Total Bilirubin Cancelled AST Cancelled ALT Cancelled Alkaline Phosphatase Cancelled Total Protein Cancelled Albumin Cancelled Lipase Cancelled Serum HCG, Qual Urine Color Urine Appearance Urine pH Ur Specific [place] Urine Protein Urine Glucose (UA) Urine Ketones Urine Blood Urine Nitrite Ur Leukocyte Esterase Urine WBC (Auto) Urine RBC (Auto) 01/16/19 01/16/19 01/16/19 13:55 14:15 14:15 WBC RBC Hgb Hct MCV MCH MCHC RDW Plt Count Seg Neutrophils % Lymphocytes % Monocytes % Eosinophils % Basophils % Absolute Neutrophils Absolute Lymphocytes Absolute Monocytes Absolute Eosinophils Absolute Basophils VBG pH VBG pCO2 VBG HCO3 VBG Base Excess Sodium 141.4 Potassium 4.3 Chloride 108 H Carbon Dioxide 14 L Anion Gap 19 BUN 12 Creatinine 0.62 Est GFR ( Amer) > 60 Est GFR (Non-Af Amer) > 60 Glucose 275 H Calcium 9.1 Total Bilirubin 0.7 AST 13 L ALT 30 Alkaline Phosphatase 118 Total Protein 7.4 Albumin 4.6 Lipase 27.4 Serum HCG, Qual NEGATIVE Urine Color YELLOW Urine Appearance CLEAR Urine pH 5.0 Ur Specific [place] 1.022 Urine Protein 30 H Urine Glucose (UA) >=500 H Urine Ketones 80 H Urine Blood SMALL H Urine Nitrite NEGATIVE Ur Leukocyte Esterase NEGATIVE Urine WBC (Auto) 1 Urine RBC (Auto) 0 01/17/19 01/17/19 04:45 04:45 WBC 9.8 RBC 4.08 Hgb 12.1 D Hct 35.4 L MCV 87 MCH 29.8 MCHC 34.2 RDW 13.6 Plt Count 390 Seg Neutrophils % 60.3 Lymphocytes % 29.9 Monocytes % 7.5 Eosinophils % 1.7 Basophils % 0.6 Absolute Neutrophils 5.9 Absolute Lymphocytes 2.9 Absolute Monocytes 0.7 Absolute Eosinophils 0.2 Absolute Basophils 0.1 VBG pH VBG pCO2 VBG HCO3 VBG Base Excess Sodium 139.4 Potassium 3.5 L Chloride 106 Carbon Dioxide 23 Anion Gap 10 BUN 7 Creatinine 0.44 L Est GFR ( Amer) > 60 Est GFR (Non-Af Amer) > 60 Glucose 155 H Calcium 8.6 Total Bilirubin 0.9 AST 11 L ALT 15 Alkaline Phosphatase 88 Total Protein 5.8 L Albumin 3.5 Lipase Serum HCG, Qual Urine Color Urine Appearance Urine pH Ur Specific [place] Urine Protein Urine Glucose (UA) Urine Ketones Urine Blood Urine Nitrite Ur Leukocyte Esterase Urine WBC (Auto) Urine RBC (Auto) Assessment & Plan - Diagnosis (1) DKA (diabetic ketoacidoses) Qualifiers: Diabetes mellitus type: type 1 Diabetes mellitus complication detail: without coma Qualified Code(s): E10.10 - Type 1 diabetes mellitus with ketoacidosis without coma Is this a current diagnosis for this admission?: Yes Plan: Patient responded well to the insulin infusion. She has no anion gap. Her glucose in fact was 64 this morning. She is no longer on her insulin infusion. She is just starting to eat. I did resume her Toujeo but at a slightly lower dose. She will receive the 10 units of Humalog with meals as well as sliding scale coverage if needed. If she tolerates an oral diet she will be able to go home in the morning. (2) Anxiety and depression Is this a current diagnosis for this admission?: Yes Plan: Bupropion, hydroxyzine and duloxetine resumed. - Time Time Spent with patient: 15-24 minutes Medications reviewed and adjusted accordingly: Yes Anticipated discharge: Home Within: within 24 hours
[2019-01-18] MEDS: LANSOPRAZOLE 30 MG TAB.RAP.DR PO SCH (05:06)
[2019-01-18 05:43] LABS: HEMATOCRIT 38.7 % (36.0-47.0); HEMOGLOBIN 13.2 g/dL (12.0-15.5); MEAN CORPUSCULAR HEMOGLOBIN 29.6 pg (27.0-33.4); MEAN CORPUSCULAR HGB CONC 34.1 g/dL (32.0-36.0); MEAN CORPUSCULAR VOLUME 87 fl (80-97); PLATELET COUNT 326 10^3/uL (150-450); RED BLOOD COUNT 4.46 10^6/uL (3.72-5.28); RED CELL DISTRIBUTION WIDTH 13.5 % (11.5-14.0); WHITE BLOOD COUNT 5.8 10^3/uL (4.0-10.5)
[2019-01-18 06:11] LABS: ANION GAP 9 (5-19); BLOOD UREA NITROGEN 6 mg/dL (7-20); CALCIUM 9.7 mg/dL (8.4-10.2); CARBON DIOXIDE 27 mmol/L (22-30); CHLORIDE 103 mmol/L (98-107); GLUCOSE 318 mg/dL (75-110); POTASSIUM 3.9 mmol/L (3.6-5.0); SODIUM 139.3 mmol/L (137-145)
[2019-01-18] MEDS: ONDANSETRON HCL INJ/PF 4 MG/2 ML SDV IV PRN (06:36)
[2019-01-18] MEDS: INSULIN LISPRO 100 UNIT/ML 3 ML VIAL SUBCUT SCH ×2 (08:15→12:16)
[2019-01-18] MEDS: INSULIN GLARGINE,HUM.REC.ANLOG 300 UNIT/3 ML INSULN.PEN SUBCUT SCH (09:53)
[2019-01-18] MEDS: BUPROPION HCL 100 MG TABLET PO SCH (09:56)
[2019-01-18] MEDS: CHLORPROMAZINE HCL INJ 25 MG/1 ML AMPULE IV PRN (09:57)
[2019-01-18] MEDS ORDERED: (PENDING PHARMACY ID) (Bupropion Hcl [Wellbutrin Sr 100 Mg Tablet] 1 TAB) PO SCH (10:00)
[2019-01-18] MEDS ORDERED: DULOXETINE HCL 30 MG CAPSULE.DR PO SCH (10:00)
[2019-01-18] MEDS: ENOXAPARIN SODIUM INJ 40 MG/0.4 ML DISP.SYRIN SUBCUT SCH (12:20)
[2019-01-18 16:17] VITALS: BP 127/62
--- NOTE | 2019-01-21 05:46 | PDOC DISCHARGE SUMMARY ---
General - Admit/Disc Date/PCP Admission Date/Primary Care Provider: 01/16/19 18:05 LEANDER REYES NP Discharge Date: 01/18/19 - Discharge Diagnosis (1) Diabetic ketoacidosis Is this a current diagnosis for this admission?: Yes (2) Anxiety and depression Is this a current diagnosis for this admission?: Yes (3) Diabetes type I Is this a current diagnosis for this admission?: Yes (4) GERD (gastroesophageal reflux disease) Is this a current diagnosis for this admission?: Yes - Additional Information Discharge Diet: As Tolerated Discharge Activity: Activity As Tolerated Home Medications: Bupropion HCl [Wellbutrin Sr 100 mg Tablet] 1 tab PO DAILY 06/21/18 Duloxetine HCl [Cymbalta] 60 mg PO DAILY 06/21/18 Hydroxyzine Pamoate [Vistaril 25 mg Capsule] 50 mg PO DAILYP PRN 06/21/18 Insulin Lispro [Humalog Insulin (Lispro) 100 unit/mL] 0 unit SUBCUT .SLD SCALE 06/21/18 Insulin Lispro [Humalog Insulin (Lispro) 100 unit/mL] 10 unit SUBCUT MEALS 01/16/19 Insulin Glargine,Hum.rec.anlog [Lantus Insulin 100 Unit/mL] 25 unit SUBCUT Q12 insuln.pen 01/18/19 History of Present Illness History of Present Illness: STEVE FARIAS is a 28 year old female presents to the ER with a 2 day history of abdominal pain and vomiting. 01/13/19 she had 3 shots while out with friends. on 01/14/19 she developed abdominal pain with some vomiting. on 01/15/19 it progressed and on 01/16/19 he BS was almost 600 and she was unable to eat or drink so she called EMS to bring her to the ER. She had 2 episodes of vomiting in the ER but does feel better after receiving IVF. She felt she was in DKA and states she has only been in DKA 1 other time. Hospital Course Hospital Course: 28 y.o. F with PMH type 1 diabetes presented to [facility] with DKA - blood glucose (at home) > 600 and initial anion gap 19. Her elevated blood glucose stems from a night of drinking that led to abdominal pain/N/V and the patient not taking her home dose of insulin. The patient was admitted to IMCU on an insulin gtt. Within less than 24 hours the patient's anion gap had closed (10) and she was off of the insulin gtt. She was slightly HYPOglycemic on hospital day 2 (BG64). Her home dose of glargine was decreased from 30 units to 25 units q12h. The patient was able to tolerate PO intake and by hospital day 3 her blood glucose was well controlled and she was deemed appropriate for discharge. For any further information regarding this patient's hospitalization, please refer to the EMR. Physical Exam Vital Signs: Temp Pulse Resp BP Pulse Ox 98.0 F 66 18 127/62 H 100 01/18/19 16:12 01/18/19 16:12 01/18/19 16:12 01/18/19 16:12 01/18/19 16:12 Results Laboratory Results: 01/18/19 05:04 01/18/19 05:04 Status: Imported from PACS Qualifiers - * PATIENT BEING DISCHARGED WITH ANY OF THE FOLLOWING DIAGNOSIS: No
== END 2019-01-18 17:10 | disposition home or self-care (01) | DRG 639 ==
LOC: ER 11:51 → EH 18:05 → 3W 19:50
PROVIDERS: ADMIT Internal Medicine; ATTEND Internal Medicine
DX: E10.10 Type 1 diabetes mellitus with ketoacidosis without coma (principal); K21.9 Gastro-esophageal reflux disease without esophagitis; F41.8 Other specified anxiety disorders; E66.9 Obesity, unspecified; Z86.14 Personal history of Methicillin resistant Staphylococcus aureus infection; Z79.4 Long term (current) use of insulin; Z88.6 Allergy status to analgesic agent; Z83.3 Family history of diabetes mellitus
CPT/HCPCS: 36415; 80048; 80053; 80307; 81001; 82803; 82962; 83690; 84703; 85025; 85027; 96361; 96365; 96375; 96376; 99291; J1815; J2300; J2405; J3230; J3480; J3490; J7030; J7060; S0028

== ENCOUNTER 2019-07-20 22:23 | Emergency (ER) | payer MEDICAID ==
[2019-07-21] MEDS ORDERED: CLINDAMYCIN HCL 150 MG CAPSULE PO ONE (02:20)
--- NOTE | 2019-07-21 02:25 | ER Document Report ---
ED General - General Chief Complaint: Abscess Stated Complaint: ABSESS ON CHIN Time Seen by Provider: 07/21/19 02:01 Primary Care Provider: LEANDER REYES NP [Primary Care Provider] - 07/23/19 Notes: Patient is a pleasant 28-year-old female presents with complaint of an abscess on the chin. Patient has had previous abscesses lotion. She had one back in the spring that required a incision and drainage in OR. She said this time is much smaller she came earlier before progress. She has started as a pimple few days ago and then started to swell tonight and therefore came to the ER. No fevers. No vomiting. No difficulty breathing or swallowing. No other complaints at this time. TRAVEL OUTSIDE OF THE [place] IN LAST 30 DAYS: No - Related Data Allergies/Adverse Reactions: codeine Allergy (Unknown, Verified 01/16/19 11:53) Past Medical History - Social History Smoking Status: Never Smoker Frequency of alcohol use: None Drug Abuse: None Family History: Reviewed & Not Pertinent Endocrine Medical History: Reports: Hx Diabetes Mellitus Type 1, Hx Diabetes Mellitus Type 2 Renal/ Medical History: Denies: Hx Peritoneal Dialysis GI Medical History: Reports: Hx Gastroesophageal Reflux Disease Psychiatric Medical History: Reports: Hx Depression Infectious Medical History: Reports: Hx MRSA Past Surgical History: Reports: Hx Tonsillectomy, Hx Tubal Ligation Review of Systems - Review of Systems Notes: My Normal Review Basic REVIEW OF SYSTEMS: CONSTITUTIONAL : Denies fever, chills, or sweats. Denies recent illness. EENT: Redness and swelling of her chin. RESPIRATORY: Denies cough, cold, or chest congestion. Denies shortness of breath, difficulty breathing, or wheezing. GASTROINTESTINAL: Denies abdominal pain. Denies nausea, vomiting, or diarrhea. Denies constipation. Last BM: SKIN: Denies rash or skin lesions. NEUROLOGICAL: Denies altered mental status or loss of consciousness. Denies headache. ALL OTHER SYSTEMS REVIEWED AND NEGATIVE. Physical Exam - Vital signs Vitals: Temp Pulse Resp BP Pulse Ox 99 F 112 H 18 141/89 H 95 07/20/19 22:47 07/20/19 22:47 07/20/19 22:47 07/20/19 22:47 07/20/19 22:47 - Notes Notes: General Appearance: Well nourished, alert, cooperative, no acute distress, no obvious discomfort. Well-appearing. Vitals: reviewed, See vital signs table. Head: no swelling or tenderness to the head of her small area of swelling on the right side of the chin. Eyes: PERRL, EOMI, Conjuctiva clear Mouth: No decreasd moisture Neck: Supple, no neck tenderness Skin: warm, dry, appropriate color, patient has proximal 1 cm area of duration with 1 cm surrounding erythema on the right side of the chin. Neuro: speech clear, oriented x 3, normal affect, responds appropriately to questions. Course - Re-evaluation Re-evalutation: 07/21/19 02:24 Patient's patient has what appears to be early stages developing abscess. Bedside ultrasound did show a small area of fluid collection that I did aspirate with 18-gauge needle. I got out approximately just under half a mL of purulent drainage. The area of infection and hilario appears to be no more than 1 cm in diameter. Patient's looks well. Feel she safe to be discharged home. I will place her on clindamycin. She was on clindamycin in the past and it worked well for her. I encouraged have a low threshold to return to ER if she has increasing redness or swelling, fevers, or she feels like she is worsening in any way. Patient agrees with plan will be discharged home. Dictation of this chart was performed using voice recognition software; therefore, there may be some unintended grammatical errors. - Vital Signs Vital signs: Temp Pulse Resp BP Pulse Ox 98.8 F 87 18 136/86 H 96 07/21/19 02:30 07/21/19 02:30 07/21/19 02:30 07/21/19 02:30 07/21/19 02:30 Procedures - Incision and Drainage chin Type: Simple I&D procedure: Chlorprep applied Incision Method: Incision made with needle Amount/type of drainage: 0.5ml of purulent drainage Discharge - Discharge Clinical Impression: Abscess Condition: Good Disposition: HOME, SELF-CARE Additional Instructions: You have the very early stages of an abscess on your chin. I have placed you on antibiotics. I did do a needle drainage of the abscess. Please continue to wash with soap and water. Warm compresses as appropriate. Please return to the ER if you have significant increase in swelling, fevers, difficulty breathing or swelling, or if you feel like you are worsening. Prescriptions: Ondansetron [Zofran Odt 4 mg Tablet] 1 tab PO Q4HP PRN #20 tab.rapdis PRN Reason: Clindamycin HCl [Cleocin 150 mg Capsule] 300 mg PO Q6 #56 capsule Referrals: LEANDER REYES NP [Primary Care Provider] - 07/23/19
[2019-07-21 03:04] VITALS: BP 136/86
== END 2019-07-21 03:08 | disposition home or self-care (01) ==
LOC: ER 22:23
DX: L02.01 Cutaneous abscess of face (principal); E11.9 Type 2 diabetes mellitus without complications; Z88.6 Allergy status to analgesic agent; Z86.14 Personal history of Methicillin resistant Staphylococcus aureus infection
CPT/HCPCS: 99283; 10060; J3490

== ENCOUNTER 2020-07-05 20:14 | Emergency (ER) | payer MEDICAID ==
[2020-07-05] MEDS ORDERED: KETOROLAC TROMETHAMINE INJ/PF 30 MG/1 ML SDV IV ONE (21:15)
[2020-07-05] MEDS ORDERED: ONDANSETRON HCL INJ/PF 4 MG/2 ML SDV IV ONE (21:15)
--- NOTE | 2020-07-05 21:16 | ER Document Report ---
ED Medical Screen (RME) - General Chief Complaint: Rib Pain Stated Complaint: RIB PAIN Time Seen by Provider: 07/05/20 21:11 Primary Care Provider: LEANDER REYES NP [Primary Care Provider] - Follow up as needed Mode of Arrival: Wheelchair Information source: Patient Notes: 29-year-old female patient presents emergency department chief complaint of right flank pain that began yesterday. Patient reports pain started in her back and has now wraps around to the right side. She does report urinary frequency and pain just before urination. She denies any history of kidney stones. She has a history of having a cholecystectomy. She reports nausea but denies vomiting or diarrhea. She has had chills but no fever. Patient appears to be moderately uncomfortable. Right CVA tenderness present. I have greeted and performed a rapid initial assessment of this patient. A comprehensive ED assessment and evaluation of the patient, analysis of test results and completion of the medical decision making process will be conducted by additional ED providers. I have specifically instructed the patient or family members with the patient to immediately return to any nursing staff should anything change in the patient's condition or with their chief complaint. TRAVEL OUTSIDE OF THE [place] IN LAST 30 DAYS: No - Related Data Allergies/Adverse Reactions: codeine Allergy (Unknown, Verified 01/16/19 11:53) Past Medical History Endocrine Medical History: Reports: Hx Diabetes Mellitus Type 1, Hx Diabetes Mellitus Type 2 Renal/ Medical History: Denies: Hx Peritoneal Dialysis GI Medical History: Reports: Hx Gastroesophageal Reflux Disease Psychiatric Medical History: Reports: Hx Depression Infectious Medical History: Reports: Hx MRSA Past Surgical History: Reports: Hx Tonsillectomy, Hx Tubal Ligation Physical Exam - Vital signs Vitals: Temp Pulse Resp BP Pulse Ox 100.2 F 113 H 20 127/82 H 98 07/05/20 20:38 07/05/20 20:38 07/05/20 20:38 07/05/20 20:38 07/05/20 20:38 Course - Vital Signs Vital signs: Temp Pulse Resp BP Pulse Ox 100.2 F 113 H 20 127/82 H 98 07/05/20 20:38 07/05/20 20:38 07/05/20 20:38 07/05/20 20:38 07/05/20 20:38 Doctor's Discharge - Discharge Referrals: LEANDER REYES NP [Primary Care Provider] - Follow up as needed
--- NOTE | 2020-07-05 22:35 | ER Document Report ---
ED General - General Chief Complaint: Flank Pain Stated Complaint: RIB PAIN Time Seen by Provider: 07/05/20 21:11 Primary Care Provider: LEANDER REYES NP [Primary Care Provider] - Follow up as needed Mode of Arrival: Wheelchair Notes: This 29-year-old woman presents to the emergency department with complaint of right flank pain which began yesterday. She states that the pain is severe and unlike anything she is ever had. She denies a history of musculoskeletal or renal related problems in the past. She states that the pain is sharp radiating around the flank and into the abdominal region. She also notes some discomfort with urination and frequency. She states that she had a temperature of 100.8 today. Patient notes severe nausea, no vomiting and no other GI disturbance. She has a history of cholecystectomy, bilateral tubal ligation and a previous tonsillectomy. TRAVEL OUTSIDE OF THE [place] IN LAST 30 DAYS: No - Related Data Allergies/Adverse Reactions: codeine Allergy (Unknown, Verified 07/05/20 21:15) Home Medications: humalog, trajego. Past Medical History - General Information source: Patient - Social History Smoking Status: Never Smoker Chew tobacco use (# tins/day): No Frequency of alcohol use: Occasional Drug Abuse: None Family History: Reviewed & Not Pertinent Patient has homicidal ideation: No Endocrine Medical History: Reports: Hx Diabetes Mellitus Type 1, Hx Diabetes Mellitus Type 2 Renal/ Medical History: Denies: Hx Peritoneal Dialysis GI Medical History: Reports: Hx Gastroesophageal Reflux Disease Psychiatric Medical History: Reports: Hx Depression Infectious Medical History: Reports: Hx MRSA Past Surgical History: Reports: Hx Tonsillectomy, Hx Tubal Ligation Review of Systems - Review of Systems Notes: Constitutional: + Temperature elevation HENT: Negative for sore throat. Eyes: Negative for visual changes. Cardiovascular: Negative for chest pain. Respiratory: Negative for shortness of breath. Gastrointestinal: + Right flank pain Genitourinary: + Urgency + frequency Musculoskeletal: Negative for back pain. Skin: Negative for rash. Neurological: Negative for headaches, weakness or numbness. 10 point ROS negative except as marked above and in HPI. Physical Exam - Vital signs Vitals: Temp Pulse Resp BP Pulse Ox 100.2 F 113 H 20 127/82 H 98 07/05/20 20:38 07/05/20 20:38 07/05/20 20:38 07/05/20 20:38 07/05/20 20:38 - Notes Notes: PHYSICAL EXAMINATION: Physical Exam: General: 29-year-old woman in moderate distress secondary to right flank and right abdominal pain. HEENT: NC/AT, pupils equal round and reactive to light, MM moist,nares clear, oropharynx clear, airway patent Neck: supple, no adenopathy, no masses. Good range of motion Lungs: clear, no wheezing, no rales no rhonchi CVS: Regular rate and rhythm no murmur gallop or rub Abdomen: Soft, active, tenderness in the mid right quadrant with no guarding, no rebound Back: + CVA tenderness right, left side negative. Ext: No edema, clubbing or cyanosis. Neuro: Alert and responsive, moving all 4 extremities on command, cranial nerves intact, no focal findings Skin: Intact no open lesions, no rash PSYCH: Normal mood, normal affect. Course - Re-evaluation Re-evalutation: 07/06/20 01:10 Patient was given IV fluids, Toradol, and Zofran. She has some mild relief of symptoms. While waiting for the CT scan her pain increases second time. Requested medications for pain. She was given hydromorphone 0.5 mg IV. Urinaly sis reveals significant leukocytes and findings compatible with UTI. Patient is given Rocephin 1 g IV and a urine culture is requested. CT scan results reveals abundance of stool in the colon and probable cyst in the right adnexa measuring 3.0 x 2.5 cm. I discussed the findings of the CT scan with the patient and explained that magnesium citrate or MiraLAX could be used to help with the constipation and follow-up with your primary care doctor regarding the CT findings. Patient notes that she is making an appointment with her primary care doctor on Tuesday and will note that she has had a CT scan performed in the hospital this weekend. She is been discharged home with Keflex, Zofran, and 6 tablets Clark - Vital Signs Vital signs: Temp Pulse Resp BP Pulse Ox 100.2 F 113 H 20 127/82 H 98 07/05/20 20:38 07/05/20 20:38 07/05/20 20:38 07/05/20 20:38 07/05/20 20:38 - Laboratory Result Diagrams: 07/05/20 23:00 07/05/20 23:00 Laboratory results interpreted by me: 07/05/20 07/05/20 22:27 23:00 Glucose 195 H Lipase < 10.0 L Urine Blood SMALL H Ur Leukocyte Esterase MODERATE H I have reviewed laboratory data and used this information for the treatment decisions regarding the patient. - Diagnostic Test Radiology reviewed: Image reviewed, Reports reviewed Radiology results interpreted by me: 07/06/20 01:12 CT abdomen pelvis with IV contrast: Limited evaluation of the lung bases is unremarkable. Osseous structures are grossly intact. Liver, spleen, adrenals, degrees, kidneys are unremarkable. Status post cholecystectomy , no evidence of bowel obstruction. Abundant stool in the colon. Normal appendix. Probable cysts in the right adnexa, measuring 3.0 x 2.5 cm. Discharge - Discharge Clinical Impression: Adnexal cyst, Nausea Urinary tract infection Qualifiers: Urinary tract infection type: site unspecified Hematuria presence: without hematuria Qualified Code(s): N39.0 - Urinary tract infection, site not specified Constipation Qualifiers: Constipation type: unspecified constipation type Qualified Code(s): K59.00 - Constipation, unspecified Condition: Good Disposition: HOME, SELF-CARE Instructions: Cephalexin ([facility]), Urinary Tract Infection ([facility]), Constipation ([facility]), Nausea or Vomiting, Nonspecific ([facility]) Additional Instructions: You were seen in the emergency department tonight with right flank and abdominal pain. Your evaluation in the emergency department revealed a urinary tract infection, constipation and and right adnexal cyst. You may use magnesium citrate 1 bottle to help with your bowel function, you are given a prescription for antibiotics and medication for nausea. Please continue those medicines as directed. You have a dose of medication for pain if needed. Please follow-up with your primary care doctor regarding the CT scan results Please note to your provider that you had a CT scan performed on 07/05/2020 which showed a right sided cyst. If your symptoms are worsening or if you have other concerns you may return to the hospital for further evaluation and treatment. HOME CARE INSTRUCTIONS & INFORMATION: Thank you for choosing us for your medical needs. We hope you're satisfied with the care you received. After you leave, you must properly care for your problem and, at the same time, observe its progress. Any condition can change. Some illnesses can change rapidly over hours or days. If your condition worsens, return to the Emergency Department or see your physician promptly. ABOUT YOUR X-RAYS AND EKG'S: If you had an EKG or X-rays taken, they have been read by the Emergency Physician. The X-rays and EKG's will also be read by a Radiologist or Director Of Surgery within 24 hours. If discrepancies are noted, you will be notified by telephone. Please be certain the ED has a correct telephone number & address where you can be reached. Also, realize that some fractures or abnormalities do not show up on initial X-rays. If your symptoms continue, see your physician. ABOUT YOUR LABORATORY TEST: If you had laboratory tests, the results have been reviewed by the Emergency Physician. Some test results (for example cultures) may not be available for several days. You will be contacted if any test result shows you need additional treatment. Please be certain the ED has a correct telephone number and address where you can be reached. ABOUT YOUR MEDICATIONS: You will receive instructions on how to take your medicine on the prescription label you receive. Additional information may be provided by the Pharmacy. If you have questions afterwards, call the ED for clarification or further instructions. Some prescribed medications may cause drowsiness. Do not perform tasks such as driving a car or operating machinery without consulting your Pharmacist. If you feel you need a refill of pain medication, your condition will need re-evaluation. Please do not call for a refill of any medication. ABOUT YOUR SIGNATURE: Signature of this document acknowledges to followin. Understanding that you received emergency treatment and that you may be released before al medical problems are known or treated. Please be certain the ED has a correct phone number & address where you can be reached. 2. Acknowledgement that you will arrange for follow-up care as recommended. 3. Authorization for the Emergency Physician to provide information to your follow-up Physician in order to maximize your care. AT ANY TIME, IF YOUR SYMPTOMS CHANGE SIGNIFICANTLY OR WORSEN OR YOU DEVELOP NEW SYMPTOMS, RETURN TO THE EMERGENCY DEPARTMENT IMMEDIATELY FOR RE-EVALUATION. OUR GOAL IS TO PROVIDE EXCELLENT MEDICAL CARE! WE HOPE THAT WE HAVE MET YOUR EXPECTATIONS DURING YOUR EMERGENCY DEPARTMENT VISIT AND THAT YOU FEEL YOU HAVE RECEIVED EXCELLENT CARE! Prescriptions: Cephalexin Monohydrate [Keflex 500 mg Capsule] 500 mg PO Q8 10 Days #30 capsule Ondansetron [Zofran Odt 4 mg Tablet] 1 - 2 tab PO Q4H PRN #15 tab.rapdis PRN Reason: For Nausea/Vomiting Referrals: LEANDER REYES, [employer] [Primary Care Provider] - Follow up as needed
[2020-07-05 22:51] LABS: APPEARANCE,URINE SLIGHTLY-CLOUDY; BILIRUBIN,URINE NEGATIVE (NEGATIVE); COLOR,URINE YELLOW; GLUCOSE, URINE NEGATIVE (NEGATIVE); KETONES,URINE NEGATIVE (NEGATIVE); LEUKOCYTE ESTERASE,URINE MODERATE (NEGATIVE); NITRITE,URINE NEGATIVE (NEGATIVE); PROTEIN,URINE NEGATIVE (NEGATIVE); URINE SPECIFIC GRAVITY 1.004; UROBILINOGEN,URINE NEGATIVE mg/dL (<2.0)
[2020-07-05 23:16] LABS: ABSOLUTE EOSINOPHILS # (AUTO) 0.1 10^3/uL (0.0-0.6); ABSOLUTE MONOCYTES (AUTO) 0.6 10^3/uL (0.1-1.4); ABSOLUTE NEUT (AUTO) 5.8 10^3/uL (1.7-8.2); BASOPHILS % (AUTO) 0.2 % (0-2); EOSINOPHILS % (AUTO) 0.9 % (0-6); HEMATOCRIT 43.3 % (36.0-47.0); HEMOGLOBIN 14.6 g/dL (12.0-15.5); LYMPHOCYTES % (AUTO) 23.3 % (13-45); MEAN CORPUSCULAR HEMOGLOBIN 30.8 pg (27.0-33.4); MEAN CORPUSCULAR HGB CONC 33.7 g/dL (32.0-36.0); MEAN CORPUSCULAR VOLUME 91 fl (80-97); MONOCYTES % (AUTO) 7.1 % (3-13); PLATELET COUNT 402 10^3/uL (150-450); RED BLOOD COUNT 4.74 10^6/uL (3.72-5.28); RED CELL DISTRIBUTION WIDTH 13.4 % (11.5-14.0); SEGMENTED NEUTROPHILS % (AUTO) 68.5 % (42-78); TOTAL CELLS COUNTED % (AUTO) 100 %; WHITE BLOOD COUNT 8.5 10^3/uL (4.0-10.5)
[2020-07-05] MEDS ORDERED: NORMAL SALINE 1000 ML 1,000 ML IV ONE (23:45)
[2020-07-05] MEDS ORDERED: CEFTRIAXONE INJ 1000 MG VIAL IV ONE (23:46)
[2020-07-05] MEDS ORDERED: HYDROMORPHONE HCL INJ/PF 2 MG/ML AMPULE IV ONE (23:47)
[2020-07-05 23:55] LABS: ALBUMIN 4.4 g/dL (3.5-5.0); ALKALINE PHOSPHATASE 92 U/L (38-126); ANION GAP 9 (5-19); ASPARTATE AMINO TRANSFERASE 23 U/L (14-36); BILIRUBIN,TOTAL 0.4 mg/dL (0.2-1.3); BLOOD UREA NITROGEN 7 mg/dL (7-20); CALCIUM 9.5 mg/dL (8.4-10.2); CARBON DIOXIDE 30 mmol/L (22-30); CHLORIDE 99 mmol/L (98-107); GLUCOSE 195 mg/dL (75-110); POTASSIUM 4.6 mmol/L (3.6-5.0); TOTAL PROTEIN 7.9 g/dL (6.3-8.2)
--- NOTE | 2020-07-06 00:50 | RADIOLOGY REPORT (SQ) ---
EXAM DESCRIPTION: CT ABDOMEN PELVIS WITH IV CONTRAST COMPLETED DATE/TME: 07/05/2020 22:36 CLINICAL HISTORY: 29 years, Female, Right flank and abdominal pain COMPARISON: None. TECHNIQUE: 430 Images stored on PACS. All CT scanners at this facility use dose modulation, iterative reconstruction, and/or weight based dosing when appropriate to reduce radiation dose to as low as reasonably achievable (ALARA). [facility]: Dose Right [facility]: CareDose [facility]: Dose Right [facility]: Teradose 4D [facility]: [employer] LIMITATIONS: None. FINDINGS: Limited evaluation of the lung bases is unremarkable. Osseous structures are grossly intact. The liver, spleen, adrenal glands, pancreas, kidneys are unremarkable. Status post cholecystectomy. No gross evidence for bowel obstruction. Abundant stool in the colon. Normal appendix. Probable cyst in the right adnexa, measuring 3.0 x 2.5 cm. IMPRESSION: Right adnexal cyst measuring 3.0 x 2.5 cm. This does not require follow-up imaging. Abundant stool in the colon. Recommendations for Benign-appearing simple adnexal cysts on CT with IV contrast and MR: (1)(2) Pre-menopause(3) (<= 50 years if LMP unknown): <=5 cm: No follow-up imaging recommended >5 cm - <=7 cm: US f/u 6-12 weeks >7 cm: Consider MR w/IVC or surgical evaluation Early post-menopause (<=5 years from LMP; > 50 years to <= 55 years if LMP unknown): <=3 cm: No follow-up imaging recommended (4) >3 cm - <=5 cm: US f/u 6-12 months (4) >5 cm - <=7 cm: US f/u promptly >7cm: Consider MR w/IVC or surgical evaluation Late post-menopause (>5 years from LMP; > 55 years if LMP unknown): <=3 cm: No follow-up imaging recommended >3 cm - <=7 cm: US f/u promptly >7 cm: Consider MR w/IVC or surgical evaluation (1)Recommendations based on the 2013 ACR White Paper for Managing Incidental Adnexal Findings on Abdominal and Pelvic CT and MRI: J Am Arelis Radiol 2013;10:675-681 (2)Excludes normal/benign findings such as ovarian calcifications w/o associated non-calcified mass, corpus luteum cyst, previously characterized cyst and cyst with documented stability in size and appearance for >2 years (3)Includes cysts with layering hemorrhage (4)If internal hemorrhage suspected in cyst, US f/u 6-12 weeks TECHNICAL DOCUMENTATION: Quality ID # [id number]: Final reports with documentation of one or more dose reduction techniques (e.g., Automated exposure control, adjustment of the mA and/or kV according to patient size, use of iterative reconstruction technique) copyright 2011 [employer]- All Rights Reserved
[2020-07-06] MEDS ORDERED: HYDROCODONE/ACETAMINOPHEN 5-325 MG (6 TAB/ER DISP) PO PRN (01:22)
[2020-07-06] MEDS ORDERED: ONDANSETRON HCL INJ/PF 4 MG/2 ML SDV IV ONE (01:23)
[2020-07-06 01:43] VITALS: BP 130/70
== END 2020-07-06 01:46 | disposition home or self-care (01) ==
LOC: ER 20:14
DX: N39.0 Urinary tract infection, site not specified (principal); N94.89 Other specified conditions associated with female genital organs and menstrual cycle; K59.00 Constipation, unspecified; E11.9 Type 2 diabetes mellitus without complications; Z90.49 Acquired absence of other specified parts of digestive tract; Z98.51 Tubal ligation status; Z79.4 Long term (current) use of insulin
CPT/HCPCS: 96376; 99285; 96361; 96375; 96365; 36415; 87086; 83690; 84703; 85025; 87088; 80053; 81001; 87186; 74177; J1885; J1170; J0696; J2405 ×2; J7030